=== PATIENT | female | born 1950 | race Caucasian/White ===

== ENCOUNTER 2018-05-05 08:26 | Inpatient (IN) | payer OTHER ==
[2018-04-22 11:27] VITALS: BMI 26.2
[2018-05-05] MEDS ORDERED: VANCOMYCIN 1,000 MG in DEXTROSE 5%-WATER - 250 ML IVPB ONE (08:48)
[2018-05-05] MEDS ORDERED: TRANEXAMIC ACID 1000 MG/10 ML VIAL IVPUSH ONE (08:48)
[2018-05-05] MEDS ORDERED: CELECOXIB 200 MG CAPSULE PO ONE (08:48)
[2018-05-05] MEDS ORDERED: CEFAZOLIN 1 GM/D5W 1 GRAM/50 ML BAG IVPB ONE (08:48)
[2018-05-05] MEDS ORDERED: BUPIVACAINE LIPOSOME/PF (EXPAREL) 266 MG/20 ML VIAL ONE (11:01)
[2018-05-05] MEDS ORDERED: SODIUM CHLORIDE 0.9% P/F 10 ML VIAL IJ ONE (11:01)
[2018-05-05] MEDS ORDERED: MIDAZOLAM HCL 2 MG/2 ML SINGLE DOSE VIAL ONE ×2 (11:01→15:15)
[2018-05-05] MEDS ORDERED: ePHEDrine SULFATE 50 MG/1 ML AMPULE ONE (12:51)
[2018-05-05] MEDS ORDERED: ONDANSETRON 4 MG/2 ML VIAL ONE ×2 (12:55→16:18)
[2018-05-05] MEDS ORDERED: ceFAZolin SODIUM 1 GM VIAL ONE (12:55)
[2018-05-05] MEDS ORDERED: VANCOMYCIN 1,000 MG VIAL (RESTRICTED TO ID ONLY) ONE (12:55)
[2018-05-05] MEDS ORDERED: DEXAMETHASONE SOD PHOSPHATE 4 MG/1 ML VIAL ONE (12:55)
[2018-05-05] MEDS ORDERED: TRANEXAMIC ACID 1000 MG/10 ML VIAL ONE (12:55)
[2018-05-05] MEDS ORDERED: KETOROLAC TROMETHAMINE 60 MG/2 ML VIAL ONE (13:26)
[2018-05-05] MEDS ORDERED: EPINEPHrine/PF 1 MG/1 ML (1:1,000) AMPULE ONE (13:26)
[2018-05-05] MEDS ORDERED: morphine CARPU-JECT 10 MG/1 ML DISP.SYRIN ONE (13:27)
[2018-05-05] MEDS ORDERED: BUPIVACAINE HCL/PF 2.5 MG/ML - 30 ML VIAL IJ ONE ×2 (13:27→15:21)
[2018-05-05] MEDS ORDERED: PROPOFOL 20 ML ONE ×3 (13:57→15:16)
[2018-05-05] MEDS ORDERED: HYDROmorphone HCL/PF 1 MG/ML AMP ONE (15:12)
--- NOTE | 2018-05-05 15:15 | PN ---
Progress Note (short form) - Note Progress Note: 75F s/p right total knee replacement POD #0. -Pain control. -DVT PPx: -Chemical: ASA 81mg PO BID. -Mechanical: PAUL's, SCD's. -Incentive spirometry. -PT/OT/Rehab, OOB. -WBAT RLE. -f/u drain output. -f/u AM labs. -f/u post-op TOV. -Post-op antibiotics x 2 doses. -Diet as tolerated. -Care per medical hospitalist team. -Discharge planning. -Will follow. Javier Fritz MD (Orthopaedic Surgery).
[2018-05-05] MEDS ORDERED: ALPRAZolam 1 MG TABLET PO PRN (15:17)
[2018-05-05] MEDS ORDERED: ALBUTEROL SO4 8 GM HFA INHALER IH PRN (15:17)
--- NOTE | 2018-05-05 15:17 | OP ---
Operative Note - Note: Operative Date: 05/05/18 Pre-Operative Diagnosis: Right knee DJD Operation: Right TKA Implants: [employer]. Femur - 3. Tibia - 3. Poly - 11mm, PS. Patella - 27mm, symmetric Surgeon: Javier Fritz Visitor Services Representative: Grant Fritz Anesthesiologist/VERTICAL BORING MILL OPERATOR: Grady Medina Anesthesia: Spinal Specimens Removed: Bone, soft tissue Estimated Blood Loss (mls): 0 Drains & Tubes with Location: 1 x deep HemoVac Fluid Volume Replaced (mls): 1,000 Operative Report Dictated: Yes
[2018-05-05] MEDS ORDERED: MAGNESIUM HYDROX 2400MG/30ML ORAL SUSPENSION 30 ML CUP PO PRN (15:18)
[2018-05-05] MEDS ORDERED: MAG HYDROX/AL HYDROX/SIMETH 30 ML UNIT-DOSE CUP PO PRN (15:18)
[2018-05-05] MEDS ORDERED: LACTATED RINGERS SOLUTION 1,000 ML IV SCH (15:30)
[2018-05-05] MEDS ORDERED: ONDANSETRON 4 MG/2 ML VIAL IVPUSH ONE (16:20)
[2018-05-05] MEDS ORDERED: ALBUTEROL SO4 8 GM HFA INHALER IH ONE (16:30)
[2018-05-05] MEDS ORDERED: ONDANSETRON 4 MG/2 ML VIAL IVPUSH PRN (16:44)
[2018-05-05] MEDS ORDERED: PROMETHAZINE HCL 25 MG/1 ML VIAL IVPUSH PRN (16:44)
[2018-05-05] MEDS ORDERED: HYDROmorphone HCL CARPU-JECT 1 MG/1 ML DISP.SYRIN IVPUSH PRN (16:44)
--- NOTE | 2018-05-05 17:09 | OP ---
DATE OF OPERATION: DATE OF DICTATION: 05/05/2018 SURGEON: Javier Fritz MD EXCELLENCE CONSULTANT: Grant Fritz MD and ANDER Ochoa ANESTHESIA: Spinal anesthesia with conscious sedation and regional block. TOURNIQUET TIME: 100 minutes. ANTIBIOTICS GIVEN: Two g Kefzol and 1 g vancomycin preop and 1 g Kefzol given at time of release of the tourniquet. Patient correctly identified and brought into the operating room. Right lower extremity was prepped, free draped in the routine manner with Betadine scrub solution, wiped with alcohol, DuraPrep applied. A timeout was called. Imaging was made for intraoperative evaluation. A midline incision utilized over the knee. The knee prior to this had been examined under anesthesia. This revealed about a 10 degree fixed flexion deformity and fixed varus deformity. With the knee in flexed, an incision was made in the midline. The dissection was taken over the fascia. A subvastus approach was utilized by incising along the medial border of the patellar ligament and curved at the inferior pole of the patella. This coursed across medially to extend entire dissection right around the medial side of the femur to the interosseous muscle, and this was then lifted off the intramuscular septum appropriately. A blunt Hohmann was placed in the subvastus plane to help hold the patella out of harm's way. Two towel clips were placed around the quads tendon ligament. These were lifted vertically up to reveal reasonably well-maintained patella, but the patella was cut from patellar ligament to quadriceps tendon. The gig applied for a 27-mm patella button was appropriately cut. The tibia was then prepared. The tibia was cut to neutral, attention to the extramedullary alignment gigs as well as the intramedullary alignment gigs. The cut of the tibia enabled sizing for a size 3 tibial component. Tibial bed with the appropriate drill hole and winged broach punch appropriately. Once this had been performed, the femur was prepared. An intraosseous hole made into the femur. The intramedullary saw placed for a 4 degree +10 tibial cut with 3 degrees of external rotation. The gig was seated appropriately. The saw cuts were made with no complications. Trial fittings of implants were excellent. Flexion and extension gaps were even at 11 mm. The bone bed was then thoroughly lavaged and cemented using 1 stage with tibia, femur, and then patella being performed. All extraneous cement was removed. A size 11 posterior stabilized tibial component inserted with excellent alignment that is back to neutral and mechanical axis associated. No problems with patella tracking with a negative thumb test test. CLOSURE: Medial parapatellar tissues with No. 1 Vicryl. Subcutaneous 1-0 and 2-0 Vicryl. Skin 3-0 Monocryl and Steri-Strips. DRAINAGE: One 18-inch Hemovac in the subvastus plane. No complication. Operation went extremely well. MD BISI Rodriguez/[id number]
[2018-05-05] MEDS ORDERED: ACETAMINOPHEN 325 MG TABLET (FP) PO ONE (17:19)
[2018-05-05] MEDS ORDERED: PT OWN MED DRAWER 7, Y5N ONE (18:02)
[2018-05-05] MEDS: CEFAZOLIN 1 GM/D5W 1 GM/50 ML BAG IVPB SCH (19:27)
[2018-05-05] MEDS: oxyCODONE HCL 5 MG TABLET PO PRN (19:27)
[2018-05-05] MEDS: ASPIRIN COATED 81 MG TABLET.EC PO SCH (21:20)
[2018-05-05] MEDS: SENNOSIDES/DOCUSATE COMBO (SENNA PLUS) TABLET (UD) PO SCH (21:20)
[2018-05-05] MEDS: oxyCODONE HCL 10 MG SUSTAINED ACTING TABLET PO SCH (21:20)
[2018-05-05] MEDS: amLODIPine BESYLATE 10 MG TABLET (FP) PO SCH (21:20)
[2018-05-06] MEDS: ACETAMINOPHEN 325 MG TABLET (FP) PO SCH ×5 (01:00→23:27)
--- NOTE | 2018-05-06 02:21 | CONSULT ---
Consult Consult Specialty:: Hospitalist Referred by:: Dr. Fritz Reason for Consultation:: Post op medical managment of right knee replacement. - History of Present Illness Chief Complaint: Right knee pain History of Present Illness: Patient reports she feels a little "shakey" after the surgery. She says her pain is about a 9 and her stomach feels like she has indigestion. She was able to eat some crackers and some ching tanner. She has passed flatus but no bowel movement. Denies headache, dizziness, chest pain, SOB, vomiting, numbness or tingling. - History Source History Provided By: Patient - Past Medical History Cardio/Vascular: Yes: HTN Pulmonary: Yes: Asthma ...: No Musculoskeletal: Yes: Osteoarthritis - Past Surgical History Past Surgical History: Yes: , Joint Replacement, Laminectomy - Alcohol/Substance Use Hx Alcohol Use: No - Smoking History Smoking history: Never smoked Have you smoked in the past 12 months: No Home Medications - Allergies Allergies/Adverse Reactions: Allergies Allergy/AdvReac Type Severity Reaction Status Date / Time shellfish derived Allergy Severe Swelling Verified 04/22/18 11:16 - Home Medications Home Medications: Ambulatory Orders Albuterol Sulfate [Proair Hfa] 8.5 gm IH ASDIR PRN 04/22/18 Alprazolam [Xanax] 1 mg PO ASDIR PRN 04/22/18 Amlodipine Besylate 10 mg PO HS 04/22/18 Oxycodone HCl/Acetaminophen [Oxycodone-Acetaminophen 10-325] 1 each PO ASDIR PRN 04/22/18 Physical Exam Vital Signs: Vital Signs Temperature 98.2 F 05/06/18 01:00 Pulse Rate 87 05/06/18 01:00 Respiratory Rate 18 05/06/18 01:00 Blood Pressure 123/67 05/06/18 01:00 O2 Sat by Pulse Oximetry (%) 93 L 05/06/18 01:00 Constitutional: Yes: Well Nourished, No Distress, Calm Eyes: Yes: WNL, Conjunctiva Clear, EOM Intact, PERRL HENT: Yes: WNL, Atraumatic, Normocephalic Neck: Yes: WNL, Supple, Trachea Midline Cardiovascular: Yes: WNL, Regular Rate and Rhythm Respiratory: Yes: WNL, Regular, CTA Bilaterally Gastrointestinal: Yes: WNL, Normal Bowel Sounds, Soft ...Rectal Exam: Yes: Deferred Integumentary: Yes: WNL Wound/Incision: Yes: Dressing Dry and Intact Neurological: Yes: WNL, Alert, Oriented Psychiatric: Yes: WNL, Alert, Oriented Imaging - Results EKG: Report Reviewed (04/16/18 NSR Rate 77 T wave inversion on V1-V2 QTc 427 ms ) Assessment/Plan 67 year old female with a PMH significant for HTN, Asthma, anxiety, and osteoarthritis presented to [facility] for right knee replacement with Dr. Fritz. Procedure was uneventful. Patient admitted for post op recovery and monitoring. S/P Right knee replacement - Ancef and Vancomycin x 2 given post-op - Monitor drain output - TOV - Pain control - Oxycontin 10 mg BID - Oxycodone 5mg and 10 mg q 3 hrs PRN - Bowel regimen: Senna 2 tabs QHS - Incentive spirometry - PT/OT/Rehab, OOB - WBAT RLE - Monitor labs HTN - Amlodipine Besylate 10 mg PO QHS with parameters - Monitor BP Asthma - Duonebs PRN Axiety - Alprazolam 1 mg PO qday PRN FEN - Lactated ringers @ 100 cc/hr - Electrolytes replete as indicated - Regular diet as tolerated Prophylaxis - DVT: Asa 81 mg PO BID, TEDs SCDs - GI: Protonix 40 mg qday Dispo: pt currently requires further inpatient care. FULL CODE Visit type - Emergency Visit Emergency Visit: No - New Patient This patient is new to me today: Yes Date on this admission: 05/06/18 - Critical Care Critical Care patient: No
[2018-05-06] MEDS: CEFAZOLIN 1 GM/D5W 1 GM/50 ML BAG IVPB SCH (03:31)
[2018-05-06] MEDS: oxyCODONE HCL 5 MG TABLET PO PRN ×4 (03:32→21:45)
[2018-05-06] MEDS ORDERED: PT OWN MED DRAWER 7, Y5N ONE (05:33)
--- NOTE | 2018-05-06 08:00 | PN ---
Progress Note (short form) - Note Progress Note: surgery POD #1 right TKA patient seen and examined at bedside with no complaints. Patient states her pain is controlled and she denies any CP, SOB, N/V, fever or chills. Vital Signs Temp 98.1 F 05/06/18 06:00 Pulse 84 05/06/18 06:00 Resp 18 05/06/18 06:00 BP 99/57 L 05/06/18 06:00 Pulse Ox 92 L 05/06/18 06:00 Intake & Output 05/05/18 05/05/18 05/06/18 11:59 23:59 11:59 Intake Total 5050 Output Total 0 1360 Balance 5050 -1360 Weight 130 lb Intake: IV 1850 Oral 200 Other 3000 Output: Drainage 0 160 1# 160 Urine 0 1200 Void 0 1200 Other: Voiding Method Toilet Toilet Height 4 ft 11 in Body Mass Index (BMI) 26.2 Weight Measurement Method Standing Scale CBC pending PE: A$Ox3, NAD unlabored resp on RA Right knee. Dressing c/d/i, Hemavac drain securely in place with gina bloody d/ c, ROM form 0-60 degrees before pain blocking. b/l LE compartments soft, supple and non-tender with +2 DP pulses. SCDS, and teds in place Problem List - Problems (1) S/P total knee arthroplasty Assessment/Plan: POD #1 Right TKA doing well with pending labs. -Pain control. -DVT PPx: -Chemical: ASA 81mg PO BID. -Mechanical: PAUL's, SCD's. -Incentive spirometry. -PT/OT/Rehab, OOB. -WBAT RLE. -f/u drain output. -f/u AM labs. -f/u post-op TOV. -Diet as tolerated. -Care per medical hospitalist team. -Discharge planning for rehab tomorrow Code(s): Z96.659 - PRESENCE OF UNSPECIFIED ARTIFICIAL KNEE JOINT
[2018-05-06 08:33] LABS: HEMATOCRIT 35.2 % (32.4-45.2); HEMOGLOBIN 11.6 GM/dl (10.7-15.3); MCHC 33.1 g/dl (32.0-36.0); MEAN CELL VOLUME 93.8 fl (80-96); MEAN PLT VOLUME 8.9 fl (7.5-11.1); PLATELET COUNT 237 K/MM3 (134-434); RBC 3.75 M/mm3 (3.60-5.2); RDW 12.4 % (11.6-15.6); WHITE BLOOD COUNT 12.9 K/mm3 (4.0-10.8)
[2018-05-06 08:39] LABS: ANION GAP 8 MMOL/L (8-16); BLOOD UREA NITROGEN 17 mg/dl (7-18); CALCIUM 9.1 mg/dl (8.4-10.2); CHLORIDE 100 mmol/L (98-107); CO2 30 mmol/L (22-28); CREATININE 0.7 mg/dl (0.6-1.3); GLUCOSE,RANDOM 132 mg/dl (74-106); MAGNESIUM 2.1 mg/dL (1.8-2.4); POTASSIUM 4.3 mmol/L (3.5-5.1); SODIUM 138 mmol/L (136-145)
[2018-05-06] MEDS: PANTOPRAZOLE 40 MG TABLET (FP) PO SCH (09:06)
[2018-05-06] MEDS: oxyCODONE HCL 10 MG SUSTAINED ACTING TABLET PO SCH ×2 (09:06→21:44)
[2018-05-06] MEDS: ASPIRIN COATED 81 MG TABLET.EC PO SCH ×2 (09:06→21:44)
[2018-05-06] MEDS: SENNOSIDES/DOCUSATE COMBO (SENNA PLUS) TABLET (UD) PO SCH ×2 (09:06→21:45)
[2018-05-06] MEDS: ONDANSETRON 4 MG/2 ML VIAL IVPUSH PRN (11:26)
--- NOTE | 2018-05-06 14:26 | PN ---
Progress Note (short form) - Note Progress Note: 67F POD1 s/p RTKR under spinal anesthetic with peripheral nerve blocks for post operative pain relief. Pt states that pain is moderately controlled and reports no anesthetic complications. AVSS. Motor and sensory function intact in bilateral lower extremities. Continue current regimen.
[2018-05-06] MEDS: amLODIPine BESYLATE 10 MG TABLET (FP) PO SCH (21:44)
[2018-05-07] MEDS: oxyCODONE HCL 5 MG TABLET PO PRN ×3 (00:31→06:25)
[2018-05-07] MEDS: ONDANSETRON 4 MG/2 ML VIAL IVPUSH PRN (06:25)
[2018-05-07] MEDS: ACETAMINOPHEN 325 MG TABLET (FP) PO SCH ×2 (06:25→13:23)
[2018-05-07 08:35] LABS: HEMATOCRIT 34.4 % (32.4-45.2); MCH 30.2 pg (25.7-33.7); MCHC 31.9 g/dl (32.0-36.0); MEAN CELL VOLUME 94.6 fl (80-96); MEAN PLT VOLUME 9.3 fl (7.5-11.1); PLATELET COUNT 238 K/MM3 (134-434); RBC 3.64 M/mm3 (3.60-5.2); RDW 12.9 % (11.6-15.6); WHITE BLOOD COUNT 9.9 K/mm3 (4.0-10.8)
[2018-05-07] MEDS: oxyCODONE HCL 10 MG SUSTAINED ACTING TABLET PO SCH (09:38)
[2018-05-07] MEDS: PANTOPRAZOLE 40 MG TABLET (FP) PO SCH (09:39)
[2018-05-07] MEDS: SENNOSIDES/DOCUSATE COMBO (SENNA PLUS) TABLET (UD) PO SCH (09:39)
[2018-05-07] MEDS: ASPIRIN COATED 81 MG TABLET.EC PO SCH (09:39)
--- NOTE | 2018-05-07 12:53 | PN ---
Physical Exam: SUBJECTIVE: Patient seen and examined OBJECTIVE: Vital Signs Period Temp Pulse Resp BP Sys/Chaves Pulse Ox Last 24 Hr 98.1 F-98.6 F 79-103 2-18 105-124/55-63 93-98 Laboratory Results - last 24 hr 05/07/18 07:51 WBC 9.9 RBC 3.64 Hgb 11.0 Hct 34.4 MCV 94.6 MCH 30.2 MCHC 31.9 L RDW 12.9 Plt Count 238 MPV 9.3 Active Medications Generic Name Dose Route Start Last Admin Trade Name Freq PRN Reason Stop Dose Admin Acetaminophen 650 mg 05/06/18 00:00 05/07/18 06:25 Tylenol - PO 05/08/18 00:00 650 mg Q6H LEIGHA Administration Al Hydroxide/Mg Hydroxide 30 ml 05/05/18 15:18 Mylanta Oral Suspension - PO Q4H PRN DYSPEPSIA Albuterol Sulfate 1 puff 05/05/18 15:17 Ventolin Hfa Inhaler - IH Q6H PRN WHEEZING Alprazolam 1 mg 05/05/18 15:17 Xanax PO ASDIR PRN ANXIETY Amlodipine Besylate 10 mg 05/05/18 22:00 05/06/18 21:44 Norvasc - PO 10 mg HS LEIGHA Administration Aspirin 81 mg 05/05/18 22:00 05/07/18 09:39 Ecotrin - PO 81 mg BID LEIGHA Administration Magnesium Hydroxide 30 ml 05/05/18 15:18 05/07/18 09:40 Milk Of Magnesia - PO 30 ml PRN PRN Administration CONSTIPATION Ondansetron HCl 4 mg 05/05/18 15:18 05/07/18 06:25 Zofran Injection IVPUSH 4 mg Q6H PRN Administration NAUSEA Oxycodone HCl 5 mg 05/05/18 16:44 05/07/18 06:25 Roxicodone - PO 5 mg Q3H PRN Administration PAIN LEVEL 1-5 Oxycodone HCl 10 mg 05/05/18 16:44 05/06/18 09:05 Roxicodone - PO 10 mg Q3H PRN Administration PAIN LEVEL 6-10 Oxycodone HCl 10 mg 05/05/18 22:00 05/07/18 09:38 Oxycontin - PO 05/08/18 16:45 10 mg BID LEIGHA Administration Pantoprazole Sodium 40 mg 05/06/18 10:00 05/07/18 09:39 Protonix - PO 40 mg DAILY LEIGHA Administration Senna/Docusate Sodium 2 tablet 05/05/18 22:00 05/07/18 09:39 Pericolace - PO 2 tablet BID LEIGHA Administration ASSESSMENT/PLAN:
[2018-05-07 13:26] VITALS: BP 112/62; PULSE 78; TEMP 97.8
--- NOTE | 2018-05-07 14:35 | DS ---
"Physical Exam: SUBJECTIVE: Patient seen and examined this am. No nausea or emesis, no CP or SOB. OBJECTIVE: Vital Signs Period Temp Pulse Resp BP Sys/Chaves Pulse Ox Last 24 Hr 97.8 F-98.6 F 78-103 16-18 105-124/55-63 93-98 HALLIE: 30 over night with 40 cc 6 am until 1400 PHYSICAL EXAM GENERAL: The patient is awake, alert, and fully oriented, in no acute distress. LUNGS: Breath sounds equal, clear to auscultation bilaterally, no wheezes, no crackles, no accessory muscle use. HEART: Regular rate and rhythm, S1, S2 without murmur, rub or gallop. ABDOMEN: Soft, nontender, nondistended. EXTREMITIES: 2+ pulses, warm, well-perfused, no edema. No calf tenderness. PAUL / SCDs in place. Right knee dressing c/d/i. Hallie removed. NEUROLOGICAL: Normal speech, gait not observed. 5/5 dorsi/plantar flexion b/l. LABS Laboratory Results - last 24 hr 05/07/ 07:51 WBC 9.9 RBC 3.64 Hgb 11.0 Hct 34.4 MCV 94.6 MCH 30.2 MCHC 31.9 L RDW 12.9 Plt Count 238 MPV 9.3 HOSPITAL COURSE: The patient was admitted to the Med-Surg Unit after an elective repair of their Right knee DJD . Now, s/p R TKR. An xray was obtained in the OR and confirmed hardware placement in good position with no fractures or dislocations. The day of surgery, the patient ambulated the hallways with assistance. Narcotic and non-narcotic pain management control was achieved with an oral and IV approach. POD #2, the surgical drain was removed fully intact and without incident. Maryuri-operative IV ABX were administered. DVT prophylaxis was achieved with SCDs and early ambulation and aspirin 81 mg BID. The patient ambulated with Physical Therapy and rehab services were recommended. N Above plan discussed with Dr. Fritz and agreed. Date of Admission:05/05/18 Date of Discharge: 05/07/18 Minutes to complete discharge: 20 Discharge Summary Reason For Visit: RIGHT KNEE OSTEOARTHRITIS Current Active Problems S/P total knee arthroplasty (Acute) Condition: Stable - Instructions Diet, Activity, Other Instructions: Dr. Fritz Discharge Instructions for Knee Replacement Post Operative Instructions Physical activity Physical Therapist will come to your home for the first 5 days. You will be set up with outpatient PT at your first post-operative visit. Use assistive devices for ambulation at all times. Weight bearing as tolerated on your surgical side. Do not put pillow under knee. May put pillow under heel. Wound care Leave your surgical dressing in place. Do not change the dressing until seen by your surgeon in the office. No baths or showers. Do not submerge your incision. Do not apply any ointments or lotions to your incision. Please call the office if your dressing is soiled/dirty or is falling off. Apply Graduated Compression Stockings (TEDS) to both lower extremities - remove daily for hygiene ONLY. Diet There are no dietary restrictions. Eat healthy, high-fiber foods. Drink 6 to 8 glasses of liquid each day. This will assist in keeping your bowels are regular. Pain management Any pain prescription medication ordered should be taken as prescribed for moderate to severe pain. Do not take additional Tylenol while taking Percocet. Take Aspirin 81 mg two times a day for a total of 6 weeks to prevent blood clots. Call Dr. Fritz for any of the following: Severe pain not relieved by medication Fever of 101 or higher Excessive bleeding or drainage on dressing Inability to urinate If you experience chest pain or shortness of breath, please seek emergency care immediately. Please call the office at to confirm your post-op appointment for the week following surgery. * [place] [employer] checked prior to escribe of narcotics for pain management This report was requested by: Teo Villanueva | Reference #: [id number] - Home Medications Comprehensive Discharge Medication List: Ambulatory Orders Albuterol Sulfate [Proair Hfa] 8.5 gm IH ASDIR PRN 04/22/18 Alprazolam [Xanax] 1 mg PO ASDIR PRN 04/22/18 Amlodipine Besylate 10 mg PO HS 04/22/18 Oxycodone HCl/Acetaminophen [Oxycodone-Acetaminophen 10-325] 1 each PO ASDIR PRN 04/22/18 This patient is new to me today: Yes Date on this admission: 05/07/18 Emergency Visit: No Critical Care patient: No - Discharge Referral Referred to [facility] Med P.C.: No"
--- NOTE | 2018-05-07 18:19 | PATH ---
Surgical Pathology Report Patient Name: YARITZA GARCIA Med. Rec. #: [id number] /Age/Gender: 1950 (Age: 67) / F Account: [id number] Location: [facility] MED-SURG Taken: 05/05/2018 Received: 05/05/2018 Reported: 05/07/2018 Physicians: Javier Fritz M.D. Specimen(s) Received BONE RIGHT KNEE Clinical History Right knee osteoarthritis Final Diagnosis BONE, KNEE, RIGHT, TOTAL KNEE ARTHROPLASTY: BONE WITH DEGENERATIVE JOINT DISEASE. FIBROSYNOVIAL TISSUE WITH PROMINENT LYMPHOPLASMACYTIC (CHRONIC) INFLAMMATORY INFILTRATE AND REACTIVE SYNOVIAL HYPERPLASIA. Comment: Although these findings are non-specific, dense lymphoplasmacytic infiltrate involving synovium with reactive synovial hyperplasia may be seen in association with rheumatoid arthritis. Correlation with clinical/radiologic and serologic findings is suggested Electronically Signed Opal Sosa M.D. Gross Description Received in formalin labeled "bone right knee," is a 12.0 x 11.5 x 2.0 cm aggregate of multiple portions of bone and soft tissue. The tibial plateau measures 7.5 x 5.0 x 1.5 cm. There are multiple areas of eburnation present, measuring up to 3 cm in greatest dimension. The remaining articular surfaces are hermosillo-yellow and focally granular. The underlying trabecular bone is yellow and hard. Binding Cementer French Cord sections are submitted in one cassette, following decalcification. 05/06/201805/06/2018
== END 2018-05-07 16:35 | DRG 470 ==
LOC: FM/S 08:26 → EDBD 16:00 → FM/S 17:54
PROVIDERS: ADMIT Orthopaedic Surgery Orthopaedic Surgery of the Spine; ATTEND Orthopaedic Surgery Orthopaedic Surgery of the Spine
PROC: 0SRC0JZ Replacement of Right Knee Joint with Synthetic Substitute, Open Approach (ICD-10-PCS; principal; 2018-05-05 12:00)
DX: M17.11 Unilateral primary osteoarthritis, right knee (principal); I10 Essential (primary) hypertension; J45.909 Unspecified asthma, uncomplicated; F41.9 Anxiety disorder, unspecified
CPT/HCPCS: 36415; 73560-TC-RT-FY; 80048; 83735; 85027; 88305-TC; 88311-TC; 94760; 97116-GP; 97162-GP